=== PATIENT | female | born 2000 | race Caucasian/White ===

== ENCOUNTER 2024-04-29 17:08 | Emergency (ER) | payer MEDICAID, OTHER ==
[~2024-04-29] VITALS: Ht 170.2 cm; Wt 68.0 kg
[2024-04-29 17:18] VITALS: BP 124/68; TEMP 98.1; O2SAT 99
== END 2024-04-29 19:52 | disposition left against medical advice (07) ==
LOC: ER 17:09
DX: R11.0 Nausea (principal); R68.83 Chills (without fever); Z53.21 Procedure and treatment not carried out due to patient leaving prior to being seen by health care provider